=== PATIENT | female | born 1975 | race Caucasian/White ===

== ENCOUNTER → 2019-12-09 10:24 | Outpatient (CLI) | payer MEDICAID | END | disposition home or self-care (01) | LOC: D.MRI 10:24 | PROVIDERS: ATTEND Clinical Nurse Specialist Family Health | DX: M25.572 Pain in left ankle and joints of left foot (principal) ==

== ENCOUNTER 2020-01-30 08:00 | Day surgery (SDC) | payer MEDICAID ==
[2020-01-29 15:31] LABS: HEMATOCRIT 46.3 % (36.0-48.0); HEMOGLOBIN 15.8 g/dL (12-16); MCH 32.6 pg (26.0-34.0); MCHC 34.1 g/dL (31.0-37.0); MCV 95.5 fL (80.0-100.0); MEAN PLATELET VOLUME 10.8 fL (7.4-10.4); RBC 4.85 10x6/uL (4.00-5.40); WBC 6.8 10x3/uL (4.8-10.8)
[2020-01-29 15:55] LABS: APTT 31.3 SECONDS (22.8-39.4); INR 1.07 (0.85-1.17); PROTIME 13.8 SECONDS (11.6-15.0)
[2020-01-29 15:59] LABS: ALBUMIN 3.6 g/dL (3.4-5.0); ANION GAP 11.8 mmol/L (8-16); BILIRUBIN - TOTAL 0.71 mg/dL (0.2-1.3); CALCIUM 8.7 mg/dL (8.5-10.1); CREATININE - SERUM 1.3 mg/dL (0.6-1.3); POTASSIUM - SERUM 3.8 mmol/L (3.5-5.1); PROTEIN - SERUM 8.1 g/dL (6.4-8.2)
[~2020-01-30] VITALS: Ht 180.3 cm; Wt 127.0 kg
[~2020-01-30 08:00] MED LIST: DESCOVY PO; HYDROCODON-ACE1 EA10; TIVICAY50 MG; UNITHROID100 MCG PO
[2020-01-30 08:17] VITALS: BP 138/90; Ht 180.3 cm; Wt 127.0 kg
[2020-01-30] MEDS ORDERED: HYDROCODON-ACE1 EA10 PO (10:12)
--- NOTE | 2020-01-30 12:46 | NUR ---
1109 IV DC'D. CATHETER TIP INTACT. NO BLEEDING AT SITE. BANDAID APPLIED.
--- NOTE | 2020-02-03 08:45 | OP ---
PATIENT NAME: MARCO ANDUJAR MEDICAL RECORD: [id number] :77 LOCATION:D.OPS ADMISSION DATE: SURGEON: ASHLEY THOMAS MD DATE OF OPERATION: 01/30/2020 PREOPERATIVE DIAGNOSIS: Painful hardware of the left ankle lateral malleolus. POSTOPERATIVE DIAGNOSIS: Painful hardware of the left ankle lateral malleolus. PROCEDURE: Removal of painful hardware of the left lateral malleolar ankle. SURGEON: Ashley Thomas MD CRYPTOLOGIC TECHNICIAN: SAPNA Davis INTRAOPERATIVE COMPLICATIONS: None. SUMMARY OF PATHOLOGIC FINDINGS: The patient did indeed have screw heads that were protruding through the subcutaneous area. These have become very uncomfortable for the patient after having an ankle fixed many years ago. OPERATIVE SUMMARY IN DETAIL: After obtaining the appropriate preoperative orthopedic surgery consent as well as anesthetic consultation, evaluation and clearance, the patient was brought to the operating room and placed on the operating table in a supine position. After adequate general laryngeal mask was administered, tourniquet was placed on the proximal aspect of the left lower extremity. However, because the patient was having TIVA anesthesia, the tourniquet was not used. Esmarch bandage was used as a tourniquet below the kneecap. The leg was elevated, exsanguinated, the Esmarch was left in place above the incision. The patient's regional anesthesia was tested and found to be adequate and sufficient. Incision was made and taken down to the level of the plate, which was very close to the subcutaneous region. Serial and sequential removal of all screws was done with fluoroscopic guidance and assistance. The plate was removed. Having completed this, final radiographs were taken and submitted for radiologist review. The wound was irrigated and closed with 2-0 Vicryl and skin harini. Sterile dressings were applied. The patient was awakened, taken to recovery room in stable condition. All final needle and sponge counts were correct. TRANSINT:[id number] Voice Confirmation ID: [id number] DOCUMENT ID: [id number] ASHLEY THOMAS MD at 0845 CC: [id number] DICTATION DATE: 01/30/20 1014 IMPORT CLERK: 01/30/20 [id number] [facility] 01/30/20 [id number] [place] [address]
== END 2020-01-30 11:45 | disposition home or self-care (01) ==
LOC: D.OPS 08:00 → D.PAN 12:30 → D.OPS 12:30
PROVIDERS: Anesthesiology; ATTEND Orthopaedic Surgery
DX: T84.84XA Pain due to internal orthopedic prosthetic devices, implants and grafts, initial encounter (principal); E07.9 Disorder of thyroid, unspecified; M25.572 Pain in left ankle and joints of left foot; B20 Human immunodeficiency virus [HIV] disease

== ENCOUNTER → 2020-02-17 14:50 | Outpatient (CLI) | payer MEDICAID ==
[2020-01-30 08:17] VITALS: BMI 39.1
[~2020-02-17 14:50] MED LIST changes: +HYDROCODON-ACE1 EA10 PO
== END | disposition home or self-care (01) ==
LOC: D.RAD 14:50
PROVIDERS: ATTEND Clinical Nurse Specialist Family Health
DX: M25.572 Pain in left ankle and joints of left foot (principal)

== ENCOUNTER → 2020-04-14 21:07 | Outpatient (CLI) | payer MEDICAID ==
[2020-01-30 08:17] VITALS: BMI 39.1
== END | disposition home or self-care (01) ==
LOC: D.LABREF 21:07
PROVIDERS: ATTEND Clinical Nurse Specialist Family Health
DX: M25.572 Pain in left ankle and joints of left foot (principal)